=== PATIENT | female | born 1955 | race Caucasian/White ===

== ENCOUNTER 2017-08-04 15:47 | Emergency (ER) | payer OTHER ==
[~2017-08-04] VITALS: Ht 162.6 cm; Wt 81.7 kg
[~2017-08-04 15:47] MED LIST: COZAAR 25 MG TA25 M1 PO; NORVASC2.5 MG PO; OMEPRAZOLE 20 M20 M1 PO; VENLAFAXINE HCL25 MG PO
[2017-08-04 15:58] LABS: ABSOLUTE BASOPHILS 0.1 thou/uL (0.0-0.2); ABSOLUTE EOSINOPHILS 0.1 thou/uL (0.0-0.7); ABSOLUTE LYMPHOCYTES 2.5 thou/uL (0.8-5.3); ABSOLUTE MONOCYTES 0.7 thou/uL (0.0-1.2); ABSOLUTE NEUTROPHILS 5.3 thou/uL (1.6-8.1); EOSINOPHILS 0.8 %; HEMATOCRIT 40.2 % (37.0-47.0); HEMOGLOBIN 13.4 gm/dL (12.0-15.0); LYMPHOCYTES 28.8 %; MCH 29.3 pg (26.0-34.0); MCHC 33.3 g/dL (28.0-37.0); MCV 87.9 fL (80.0-100.0); MONOCYTES 7.8 %; MPV 7.1 fl. (7.2-11.1); NUCLEATED RBCS 0 /100WBC; PLATELET COUNT* 296 thou/uL (150-400); POLYS 61.6 %; RBC 4.58 mil/uL (4.20-5.00); RDW-CV 14.4 % (10.5-14.5); WBC 8.6 thou/uL (4.0-11.0)
[2017-08-04 16:19] LABS: ALBUMIN 3.6 g/dL (3.4-5.0); CALCIUM 8.7 mg/dL (8.5-10.1); CREATININE 1.2 mg/dL (0.6-1.3); TOTAL BILIRUBIN 0.6 mg/dL (<0.1-1.0); TOTAL PROTEIN 7.2 g/dL (6.4-8.2)
[2017-08-04 16:26] LABS: ALCOHOL 271 mg/dL (<10); SALICYLATE < 2.8 mg/dL (2.8-20.0)
[2017-08-04 16:28] LABS: ACETAMINOPHEN < 2 ug/mL (10-30)
[2017-08-04 16:54] LABS: URINE BILIRUBIN NEGATIVE (Negative); URINE BLOOD NEGATIVE (Negative); URINE CLARITY CLEAR; URINE COLOR STRAW; URINE GLUCOSE-RANDOM NEGATIVE (Negative); URINE KETONES NEGATIVE (Negative); URINE LEUKOCYTES-REFLEX NEGATIVE (Negative); URINE NITRITE-REFLEX NEGATIVE (Negative); URINE PROTEIN NEGATIVE (Negative); URINE SPECIFIC GRAVITY <= 1.005 (1.005-1.030); URINE UROBILINOGEN 0.2 E.U./dl (0.2-1.0)
[2017-08-04 17:03] LABS: AMP/METHAMP Negative (Negative); BARBITURATES Negative (Negative); BENZODIAZEPINES Negative (Negative); COCAINE Negative (Negative); METHADONE Negative (Negative); OPIATES Negative (Negative); PCP Negative (Negative); THC Negative (Negative)
[2017-08-04 17:26] VITALS: BP 103/57
--- NOTE | 2017-08-05 17:51 | EKG ---
[place] [address] ELECTROCARDIOGRAM REPORT Name: YAHAIRA KU [id number] Admission: 08/04/17 Attend Phys: Discharge: 08/04/17 Date of : 53 Report #: [id number] THIS REPORT FOR: //name// [facility] ED Test Date: 2017-08-04 Test Time: 16:28:19 Pat Name: YAHAIRA KU Department: Room: Gender: F Machine Maintenance Technician: ROSY : 1955 Requested By: Ethan Juarez Order Number: [id number] MD: Osiel Balderas Measurements Intervals Gary Rate: 102 P: 60 NM: 146 QRS: 49 QRSD: 91 T: 24 QT: 348 QTc: 454 Interpretive Statements Sinus tachycardia Compared to ECG 03/30/2017 12:37:52 No significant changes Electronically Signed On 08-05-2017 17:51:22 CDT by Osiel Balderas [email or web address] <ELECTRONICALLY SIGNED> By: Osiel Balderas MD, [facility] 08/05/17 1751 1628 1628 Osiel Balderas MD, FACC /EPI
== END 2017-08-04 17:31 | disposition home or self-care (01) ==
LOC: M.ERS 15:47
PROVIDERS: Family Medicine
DX: F10.920 Alcohol use, unspecified with intoxication, uncomplicated (principal); E11.9 Type 2 diabetes mellitus without complications; I10 Essential (primary) hypertension; Z88.8 Allergy status to other drugs, medicaments and biological substances; V49.9XXA Car occupant (driver) (passenger) injured in unspecified traffic accident, initial encounter; Y93.89 Activity, other specified; Y92.89 Other specified places as the place of occurrence of the external cause; Y99.8 Other external cause status